=== PATIENT | female | born 1955 | race Hispanic/Latino ===

== ENCOUNTER 2017-01-12 14:47 | Emergency (ER) | payer SELFPAY ==
[2017-01-12 14:57] VITALS: BP 114/80
--- NOTE | 2017-01-12 16:28 | Emergency Department Report ---
HPI - General Chief Complaint: Fall Time Seen by Provider: 01/12/17 15:34 - HPI HPI: This is a 61-year-old female presents to the emergency department with complaint of left upper arm and shoulder pain since the patient had a ground-level fall 4 days ago. She slipped on something on the floor and fell forward, or so she thought. She knows that she hit her head and face but she did not have any loss of consciousness. At first she had some bruising and/or swelling to the forehead but that has since improved. Shortly after the fall she noticed that she was having progressively worsening pain to the left upper arm at the shoulder and has been unable to move it without worsening the pain. There has been some bruising and swelling but no obvious deformity to this area. She is right-hand dominant. She is not taken anything for symptoms prior to presentation. She denies any headache, vision change, slurred speech, neck pain or any neurological deficits. She has a past medical history of hypertension. ED Past Medical Hx - Past Medical History Previous Medical History?: Yes Hx Hypertension: Yes - Surgical History Past Surgical History?: Yes - Social History Smoking Status: Never Smoker Substance Use Type: Alcohol - Medications Home Medications: Home Medications Medication Instructions Recorded Confirmed Last Taken Type HYDROcodone/APAP 5-325 [[place] 1 each PO Q6HR PRN #16 tablet 01/12/17 Unknown Rx 5/325] ED Review of Systems ROS: Stated complaint: FALL/LEFT SHOULDER/HEAD PAIN Other details as noted in HPI Comment: All other systems reviewed and negative Constitutional: denies: chills, fever Eyes: denies: eye pain, eye discharge, vision change ENT: denies: ear pain, throat pain Respiratory: denies: cough, shortness of breath, wheezing Cardiovascular: denies: chest pain, palpitations Gastrointestinal: denies: abdominal pain, nausea, diarrhea Genitourinary: denies: urgency, dysuria, discharge Musculoskeletal: joint swelling, arthralgia Skin: denies: rash, pruritus Neurological: denies: headache, weakness, numbness, paresthesias Physical Exam - Physical Exam Vital Signs: Vital Signs 01/12/17 14:52 Temperature 98.3 F Pulse Rate 91 H Respiratory 16 Rate Blood Pressure 114/80 O2 Sat by Pulse 96 Oximetry Physical Exam: GENERAL: The patient is well-developed well-nourished. HEENT: Normocephalic. Atraumatic. Extraocular motions are intact. Patient has moist mucous membranes. Physical reactive to light bilaterally. NECK: Supple. Trachea is midline. CHEST/LUNGS: Clear to auscultation. There is no respiratory distress noted. HEART/CARDIOVASCULAR: Regular. There is no tachycardia. There is no gallop rub or murmur. ABDOMEN: Abdomen is soft, nontender. Patient has normal bowel sounds. There is no abdominal distention. SKIN: Skin is warm and dry. NEURO: The patient is awake, alert, and oriented. The patient is cooperative. The patient has no focal neurologic deficits. The patient has normal speech and gait. MUSCULOSKELETAL: There is tenderness to palpation to the left shoulder and proximal humerus but no obvious deformity. However the patient is holding her left arm in internal rotation against her body using her other hand. Radial pulses +2 over 4 bilaterally. Cap refill less than 2 seconds. ED Course Vital Signs 01/12/17 14:52 Temperature 98.3 F Pulse Rate 91 H Respiratory 16 Rate Blood Pressure 114/80 O2 Sat by Pulse 96 Oximetry ED Medical Decision Making - Radiology Data Radiology results: image reviewed interpreted by me: X-ray of the left shoulder and humerus shows a fracture to the posterior lateral portion of the proximal humerus that could appear consistent with the tuberosity. - Medical Decision Making 61-year-old female fell 4 days ago hitting her face and head and obviously hitting her left shoulder and upper arm. The x-ray of the left shoulder and humerus shows a tuberosity fracture. It is closed and she is neurovascularly intact. She was placed in a sling and will remain in it until follow-up with the orthopedist. The patient has some mild soreness to the forehead where she had impact but she did not have any loss of consciousness, does not have any neurologic deficits. There is no focal, motor or sensory deficits in her cranial nerves are intact. I offered the patient a CT scan of the head for further evaluation but she did not want it at this time. There are no post concussive like symptoms. Patient was given a [place] for pain and referrals for Dr. Palomino. She will return to the ER with any worsening of her symptoms or any acute distress. - Differential Diagnosis fracture, contusion, sprain, strain, concussion Critical Care Time: No Critical care attestation.: If time is entered above; I have spent that time in minutes in the direct care of this critically ill patient, excluding procedure time. ED Disposition Clinical Impression: Closed fracture of left proximal humerus Qualifiers: Encounter type: initial encounter Fracture morphology: unspecified fracture morphology Qualified Code(s): S42.202A - Unspecified fracture of upper end of left humerus, initial encounter for closed fracture Disposition: TO HOME OR SELFCARE Is pt being admited?: No Condition: Stable Instructions: Arm Fracture in Adults (ED) Additional Instructions: Please follow-up with an orthopedist in the next few days. I referral for a local orthopedist, Dr. Palomino, to follow-up regarding her fracture. Stay in the arm sling until follow-up with the orthopedist. Return to the emergency department with any worsening of your symptoms or any acute distress. Prescriptions: HYDROcodone/APAP 5-325 [[place] 5/325] 1 each PO Q6HR PRN #16 tablet PRN Reason: Pain Referrals: PRIMARY MD KENYATTA [Primary Care Provider] - 3-5 Days GANESH PALOMINO MD [Staff Physician] - 3-5 Days Time of Disposition: 16:27
--- NOTE | 2017-01-12 16:56 | XRay Report ---
Left shoulder, left humerus: Trauma, pain, swelling. Images of the shoulder demonstrate a fracture with an avulsion of the tuberosity. There is mild separation. There may also be a fracture involving the humerus neck with impaction. The images are not optimal. The remainder of the humerus is unremarkable. Impression: Tuberosity fracture with suspicion of impaction of the neck.
== END 2017-01-12 16:43 | disposition home or self-care (01) ==
LOC: ED 14:47
DX: S42.202A Unspecified fracture of upper end of left humerus, initial encounter for closed fracture (principal); I10 Essential (primary) hypertension; W18.30XA Fall on same level, unspecified, initial encounter; Y93.9 Activity, unspecified; Y92.9 Unspecified place or not applicable; Y99.9 Unspecified external cause status